=== PATIENT | female | born 1965 | race Caucasian/White ===

== ENCOUNTER 2021-01-30 04:53 | Emergency (ER) | payer BC ==
[~2021-01-30] VITALS: Ht 165.1 cm; Wt 74.8 kg
[2021-01-30] MEDS ORDERED: PERCOCET 5-3251 EACH PO (06:47)
[2021-01-30] MEDS ORDERED: FLOMAX0.4 MG PO (06:47)
[2021-03-23] MEDS ORDERED: HYDROCHLOROTHIA25 MG PO (13:01)
== END 2021-01-30 07:11 | disposition home or self-care (01) ==
LOC: ED 04:53
DX: N13.2 Hydronephrosis with renal and ureteral calculous obstruction (principal); I10 Essential (primary) hypertension
CPT/HCPCS: 74176; 80053; 81001; 85025; 96374; 96375; 99284-25; J1885; J2405

== ENCOUNTER 2022-03-06 12:51 | Day surgery (SDC) | payer OTHER ==
[~2022-03-06] VITALS: Ht 165.1 cm; Wt 67.0 kg
[~2022-03-06 12:51] MED LIST: FLOMAX0.4 MG PO; HYDROCHLOROTHIA25 MG PO; PERCOCET 5-3251 EACH PO
--- NOTE | 2022-03-06 16:41 | NUR ---
03/06/22 1641 Steff Mckeon 1537 PT ARRIVED IN PACU SLEEPY WITH NO C/O'S. 1545 DR AT BEDSIDE ATTEMPTING TO ACCESS PT'S LAP BAND PORT IN ABD. 1550 NO SUCCESS ACCESSING PORT. DR WILL REVIEW XRAYS AND TALK WITH PT AT APPT. 1600 SITTING AT SIDE OF BED GETTING DRESSED. 1612 LEFT VIA W/C.
--- NOTE | 2022-03-08 13:04 | OR ---
[facility] [address], [place] [address] Signed DATE OF OPERATION: 03/06/2022 SURGEON: Pedro Vanessa MD PREOPERATIVE DIAGNOSES: 1. Persistent progressive weight loss. 2. Functional dysphagia. 3. History of lap band in 2007. POSTOPERATIVE DIAGNOSES: 1. No evidence of erosion of band into the stomach. 2. Tight lap band proximal stomach. 3. Gastric polyps and hypertrophied duodenal mucosa. PROCEDURE: Esophagogastroduodenoscopy with biopsy. ANESTHESIA: Intravenous sedation; fentanyl 100 mcg and Versed 4 mg. INDICATION: This 56-year-old white woman is a patient of CK Zheng. She underwent lap banding by Zoya Martinez MD in 2007. She had a substantial weight loss and had been doing well until the past several months where she has had progressive difficulty with swallowing and keeping food down. She has had burning type pain and has begun on omeprazole. Her former surgeon has retired. She has nearly disabling epigastric pain from this from [id number]. An upper GI was performed under my direction, which confirmed the band to have not slipped in any way based on prior contrast studies. There is pooling of secretions and so forth above the band site with progressive stacking in the esophagus. She is admitted at this time to undergo upper endoscopy to better characterize the problem and specifically to additionally assess for erosion of the band into the stomach itself. The risks of bleeding, infection, and perforation related to upper endoscopy was reviewed with her. She understands and wished to proceed. FINDINGS: A tight area for passage of the scope into the stomach proper at the site of the lap band was noted. There was no evidence of erosion of the device into the lumen of the stomach, however. The esophagus proximally was somewhat chronically inflamed. There Electronically Signed By: PEDRO VANESSA MD 03/08/22 1304 PATIENT NAME: BAKARI VILLEGAS OPERATIVE REPORT DATE OF : 67 REPORT #: [id number] PHYSICIAN: PEDRO VANESSA MD PCP: ANANTH BLANCA PA-C REPORT IS CONFIDENTIAL AND NOT TO BE RELEASED WITHOUT AUTHORIZATION [facility] [address], [place] [address] Signed was no sign of neoplasm, varices, or Haq's epithelium. The midesophagus did not have findings characteristic of the eosinophilic esophagitis. The stomach itself had multiple polyps, likely related to PPI use. The pylorus was slightly challenging to pass, but ultimately without problem and did not have true gastric outlet obstruction. The duodenum was reasonably normal except for some hypertrophied mucosa. CLOtest was negative 20 minutes post procedure. DESCRIPTION OF PROCEDURE: The patient was brought to the endoscopy suite, given topical lidocaine, hypopharyngeal anesthesia and placed in lateral decubitus position. She was given intravenous sedation with full cardiopulmonary monitoring to the point of slurred speech and nystagmus. An Olympus video upper endoscope was passed in the hypopharynx. The vocal cords were briefly seen and normal. The scope was advanced to the esophagus, throughout its length, it was noted to have some pooling of secretions including the area just the proximal stomach represented of the lap band. The scope was advanced to the stomach, which was insufflated with air. There was no evidence of migration of the device into the lumen of the stomach notably. There were some gastric polyps. The pylorus was normal in configuration, but slightly delayed and passing into the duodenum. The duodenum was overall normal, though there was some hypertrophied mucosa in the duodenal bulb. Biopsies were obtained. The scope was withdrawn. Biopsies taken of the antrum for both SATHYA and pathologic testing. Extrusion [employer] Supervisor polyp was excised as well. Retroflexed view confirmed the configuration of the lap band, which was in the very proximal stomach. The scope was withdrawn through it again and biopsies taken directly at that site and subsequently the distal esophagus, which had mild chronic inflammation. More proximal esophagus was biopsied in the midportion to assess for eosinophilic esophagitis, though there were no characteristic findings there. The scope was withdrawn and removed. The patient was taken to the recovery room in good condition. CONCLUDING DIAGNOSIS: The lap band is causing functional outlet obstruction of the esophagus. Given the passage of 14 years since that time, the possibility of stricture development may be of note. Today, we will withdraw some saline from the lap band device and see if that improves her symptoms at all. I will see her back in the office in a few weeks. We will review her pathology report and clinical findings. MD PETER Hewitt/BARAK Electronically Signed By: PEDRO VANESSA MD 03/08/22 1304 PATIENT NAME: BAKARI VILLEGAS OPERATIVE REPORT DATE OF : 67 REPORT #: [id number] PHYSICIAN: PEDRO VANESSA MD PCP: ANANTH BLANCA PA-C REPORT IS CONFIDENTIAL AND NOT TO BE RELEASED WITHOUT AUTHORIZATION [address] [address] Signed /[id number] cc: CK Zheng Copies: ~ Electronically Signed By: PEDRO VANESSA MD 03/08/22 1304 PATIENT NAME: BAKARI VILLEGAS OPERATIVE REPORT DATE OF : 67 REPORT #: [id number] PHYSICIAN: PEDRO VANESSA MD PCP: ANANTH BLANCA PA-C REPORT IS CONFIDENTIAL AND NOT TO BE RELEASED WITHOUT AUTHORIZATION
--- NOTE | 2022-03-08 14:47 | PATH ---
[facility] [address], [place] [address] Signed SPECIMEN(S): A DUODENAL BIOPSY SPECIMEN(S): B STOMACH POLYP SPECIMEN(S): C LAPBAND SITE SPECIMEN(S): D DISTAL ESOPHAGEAL BIOPSY SPECIMEN(S): E MID ESOPHAGEAL BIOPSY SPECIMEN SOURCE: A. DUODENAL BIOPSY B. STOMACH POLYP C. LAPBAND SITE D. DISTAL ESOPHAGEAL BIOPSY E. MID ESOPHAGEAL BIOPSY CLINICAL HISTORY: Pre: Reflux, epigastric pain, dysphagia. Post-op: Mild distal esophagitis, gastric polyps. FINAL PATHOLOGIC DIAGNOSIS: A. Duodenal biopsy: - Benign duodenal mucosa, negative for specific diagnostic abnormality. - Negative for significant villous effacement or increased epithelial lymphocytes. B. Stomach polyp: - Benign fundic gland polyp. C. Lap band site: - Benign squamous esophageal and gastric glandular mucosa with reactive features and slight chronic inflammation. - Negative for specialized intestinal metaplasia or dysplasia. - Negative for increased epithelial eosinophils within the esophageal mucosa. D. Distal esophageal biopsy: - Benign esophageal mucosa, negative for increased epithelial eosinophils. - Negative for glandular epithelium. E. Mid esophagus biopsy: - Benign esophageal mucosa, negative for increased epithelial eosinophils. - Negative for glandular epithelium. [id number] MICROSCOPIC EXAMINATION: Histologic sections of all submitted blocks are examined by light microscopy. These findings, together with the gross examination, support the pathologic diagnosis. PATIENT NAME: BAKARI VILLEGAS PATHOLOGY DATE OF : 67 REPORT #: [id number] PHYSICIAN: ZULY SALINAS PCP: ANANTH BLANCA PA-C REPORT IS CONFIDENTIAL AND NOT TO BE RELEASED WITHOUT AUTHORIZATION [facility] [address] [place], [place] [address] Signed GROSS DESCRIPTION: Five specimens are received in five containers, labeled "ES." A. The specimen, labeled "ES, duodenum biopsy," is received in formalin and consists of four ramirez soft tissue fragments that measure 0.1 to 0.2 cm in greatest dimension. The specimen is entirely submitted in cassette (A1). B. The specimen, labeled "ES, stomach polyp," is received in formalin and consists of two ramirez soft tissue fragments that measure 0.1 to 0.2 cm in greatest dimension. The specimen is entirely submitted in cassette (B1). C. The specimen, labeled "ES, lap band site esophagus biopsy," is received in formalin and consists of four ramirez soft tissue fragments that measure 0.1 to cm in greatest dimension. The specimen is entirely submitted in cassette (C1). D. The specimen, labeled "ES, distal esophagus biopsy," is received in formalin and consists of one ramirez soft tissue fragment that measures 0.3 cm in greatest dimension. The specimen is entirely submitted in cassette (D1). E. The specimen, labeled "ES, mid esophagus biopsy," is received in formalin and consists of one ramirez soft tissue fragment that measures 0.4 cm in greatest dimension. The specimen is entirely submitted in cassette (E1). JS (under the direct supervision of a pathologist) The Gross Description was prepared using a voice recognition system. The report was reviewed for accuracy; however, sound-alike word errors, addition and/or deletions may occur. If there is any question about this report, please contact Client Services. PERFORMING LABORATORY: The technical component was performed by [facility], [address] [place] [id number] (CLIA# [id number]). Professional interpretation was performed by [facility], [address] [place] [address] [address] [place] [address] (CLIA#: [id number]). Diagnostician: Cesar Mcmillan MD Pathologist Electronically Signed 03/08/2022 Copies: PATIENT NAME: BAKARI VILLEGAS PATHOLOGY DATE OF : 67 REPORT #: [id number] PHYSICIAN: ZULY PATHOLOGY PCP: ANANTH BLANCA PA-C REPORT IS CONFIDENTIAL AND NOT TO BE RELEASED WITHOUT AUTHORIZATION [address] [address] Signed ~ PATIENT NAME: BAKARI VILLEGAS PATHOLOGY DATE OF : 67 REPORT #: [id number] PHYSICIAN: ZULY PATHOLOGY PCP: ANANTH BLANCA PA-C REPORT IS CONFIDENTIAL AND NOT TO BE RELEASED WITHOUT AUTHORIZATION
== END 2022-03-06 16:12 | disposition home or self-care (01) ==
LOC: DS 12:51 → OPS 12:51 → DS 12:55 → OPS 14:00
PROVIDERS: ATTEND Surgery
PROC: 0DB78ZX Excision of Stomach, Pylorus, Via Natural or Artificial Opening Endoscopic, Diagnostic (ICD-10-PCS; 2022-03-06)
PROC: 0DB68ZX Excision of Stomach, Via Natural or Artificial Opening Endoscopic, Diagnostic (ICD-10-PCS; 2022-03-06)
PROC: 0DB28ZX Excision of Middle Esophagus, Via Natural or Artificial Opening Endoscopic, Diagnostic (ICD-10-PCS; 2022-03-06)
PROC: 0DB38ZX Excision of Lower Esophagus, Via Natural or Artificial Opening Endoscopic, Diagnostic (ICD-10-PCS; 2022-03-06)
PROC: 0DB98ZX Excision of Duodenum, Via Natural or Artificial Opening Endoscopic, Diagnostic (ICD-10-PCS; principal; 2022-03-06 14:00)
DX: T85.598A Other mechanical complication of other gastrointestinal prosthetic devices, implants and grafts, initial encounter (principal); K22.2 Esophageal obstruction; K29.50 Unspecified chronic gastritis without bleeding; Y73.8 Miscellaneous gastroenterology and urology devices associated with adverse incidents, not elsewhere classified; K21.00 Gastro-esophageal reflux disease with esophagitis, without bleeding; K31.7 Polyp of stomach and duodenum; K31.89 Other diseases of stomach and duodenum; F45.8 Other somatoform disorders; I10 Essential (primary) hypertension
CPT/HCPCS: 99153; G0500; J2250; J3010; J7121